=== PATIENT | male | born 1985 | race African-American/Black ===

== ENCOUNTER 2020-06-25 22:34 | Emergency (ER) | payer SELFPAY ==
[~2020-06-25] VITALS: Ht 185.4 cm; Wt 91.0 kg
[2020-06-25] MEDS ORDERED: DIPHENHYDRAMINE 50MG CAPSULE PO STA (22:48)
[2020-06-25 23:17] LABS: HEMATOCRIT. 37.9 % (42.0-52.0); HEMOGLOBIN. 12.6 g/dL (14.0-18.0); MEAN CORPUSCULAR HEMOGLOBIN 31.2 pg (28.0-32.0); MEAN CORPUSCULAR VOLUME 93.6 fL (80.0-94.0); MEAN PLATELET VOLUME 8.3 fl (7.4-10.4); PLATELET 319 x1000/uL (130-400); RED BLOOD CELL COUNT 4.05 mill/uL (4.7-6.1); RED CELL DISTRIBUTION WIDTH 11.7 % (11.6-14.6)
[2020-06-25 23:23] LABS: CHLORIDE 102 mEq/L (98-107)
[2020-06-25 23:27] LABS: ETHANOL BLOOD < 10 mg/dL
[2020-06-25] MEDS ORDERED: CEFTRIAXONE SODIUM 1 G/VIAL IM ONE (23:30)
[2020-06-25 23:31] LABS: CREATINE KINASE 658 IU/L (39-308)
[2020-06-26] MEDS ORDERED: DIAZEPAM 5 MG TABLET PO ONE
[2020-06-26] MEDS ORDERED: OLANZAPINE 5MG TABLET ODT PO ONE
[2020-06-26] MEDS ORDERED: DIPHENHYDRAMINE 50MG/ML VIAL IM ONE (00:30)
[2020-06-26] MEDS ORDERED: LORAZEPAM 2MG/ML CPJ IM ONE (00:30)
[2020-06-26] MEDS ORDERED: HALOPERIDOL LACTATE 5MG/ML VIAL IM ONE (00:30)
[2020-06-26 01:09] LABS: PLATELET ESTIMATE NORMAL
[2020-06-26 10:50] VITALS: BP 120/65
== END 2020-06-26 11:52 | disposition home or self-care (01) ==
LOC: ER 22:34
DX: T50.901A Poisoning by unspecified drugs, medicaments and biological substances, accidental (unintentional), initial encounter (principal); F19.121 Other psychoactive substance abuse with intoxication delirium; R45.1 Restlessness and agitation; F17.200 Nicotine dependence, unspecified, uncomplicated; Y92.9 Unspecified place or not applicable
CPT/HCPCS: 36415; 80053; 80307; 80320; 80329; 82140; 82550; 82962; 85025; 93005; 96372; 99285; J1200; J1630; J2060; Q0163; G0480